=== PATIENT | female | born 1995 | race Caucasian/White ===

== ENCOUNTER 2023-09-23 01:03 | Emergency (ER) | payer MEDICAID ==
[~2023-09-23] VITALS: Ht 160 cm; Wt 70.9 kg
[2023-09-23 01:14] VITALS: BP 115/84; PULSE 82; RESP 16; TEMP 98.6; O2SAT 98
== END 2023-09-23 03:31 | disposition left against medical advice (07) ==
LOC: EDBD 01:05 → EEVIPCON 01:05 → ER 01:05
DX: Z11.3 Encounter for screening for infections with a predominantly sexual mode of transmission (principal); Z88.0 Allergy status to penicillin; Z88.8 Allergy status to other drugs, medicaments and biological substances
CPT/HCPCS: 93005; 99283

== ENCOUNTER 2025-03-17 06:52 | Emergency (ER) | payer MEDICAID ==
[~2025-03-17] VITALS: Ht 160 cm; Wt 72.0 kg
[~2025-03-17 06:52] MED LIST: DIPH25CA52 PO; NO HOME MEDS
[2025-03-17 06:53] VITALS: BP 115/68; PULSE 81; RESP 18; TEMP 98.5; O2SAT 99
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
== END 2025-03-17 09:44 | disposition left against medical advice (07) ==
LOC: ER 06:52
DX: R21 Rash and other nonspecific skin eruption (principal); Z53.21 Procedure and treatment not carried out due to patient leaving prior to being seen by health care provider; Z88.0 Allergy status to penicillin; Z91.010 Allergy to peanuts; Z88.1 Allergy status to other antibiotic agents; Z88.6 Allergy status to analgesic agent; Z79.899 Other long term (current) drug therapy
CPT/HCPCS: 99281

== ENCOUNTER 2025-03-27 13:44 | Emergency (ER) | payer MEDICAID ==
[~2025-03-27] VITALS: Ht 160 cm; Wt 70.4 kg
[2025-03-27 13:54] VITALS: BP 123/89; PULSE 67; TEMP 98.4; O2SAT 99
[2025-03-27 14:19] LABS: LEUKOCYTE ESTERASE ,URINE TRACE (Neg); NITRITES, URINE NEGATIVE (Neg); OCCULT BLOOD,URINE NEGATIVE (Neg)
[2025-03-27 14:23] LABS: URINE HCG NEGATIVE (NEG)
[2025-03-27 14:24] LABS: UA COLLECTION TYPE NON-SPECIFIED
[2025-03-27 14:27] LABS: MEAN PLATELET VOLUME 7.6 FL (7.4-10.4); RED CELL DISTRIBUTION WIDTH 12.8 % (11.5-14.5)
[2025-03-27 14:32] LABS: MUCUS STRANDS FEW /LPF (Neg); SQUAMOUS EPITHELIAL CELL,UR MANY /LPF (FEW)
[2025-03-27 14:42] LABS: CREATININE 0.63 MG/DL (0.40-0.90); TOTAL CARBON DIOXIDE 28.5 MMOL/L (24-32); eCRCL 107 ML/MIN; eGFR > 90 ML/MIN
[2025-03-27 14:46] VITALS: RESP 16
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
== END 2025-03-27 16:03 | disposition home or self-care (01) ==
LOC: EEVIPCON 13:45 → ER 13:45
DX: Z00.00 Encounter for general adult medical examination without abnormal findings (principal); Z88.0 Allergy status to penicillin; Z88.1 Allergy status to other antibiotic agents; Z88.6 Allergy status to analgesic agent; Z88.8 Allergy status to other drugs, medicaments and biological substances; Z91.010 Allergy to peanuts
CPT/HCPCS: 36415; 80053; 81001; 81025; 83690; 85025; 99283

== ENCOUNTER 2025-04-03 09:39 | Emergency (ER) | payer MEDICAID ==
[~2025-04-03] VITALS: Ht 160 cm; Wt 59.1 kg
[2025-04-03 09:46] VITALS: BP 152/80; PULSE 81; RESP 16; TEMP 98; O2SAT 97
[2025-04-03] MEDS: LEVONORGESTREL 1.5MG tablet 1.5 MG TABLET PO ONE (11:40)
[2025-04-03 11:51] LABS: URINE HCG NEGATIVE (NEG)
[2025-04-03] MEDS: TINIDAZOLE 500 MG TABLET PO ONE (13:00)
[2025-04-03] MEDS: CefTRIAXone 500MG IM Kit w/LIDOcaine (for pt below or = to 150kg) IM ONE (13:01)
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
== END 2025-04-03 14:00 | disposition home or self-care (01) ==
LOC: ER 09:39 → EEVIPCON 09:39 → ER 14:00
DX: Z00.00 Encounter for general adult medical examination without abnormal findings (principal); T74.21XA Adult sexual abuse, confirmed, initial encounter; Z88.0 Allergy status to penicillin; Z88.1 Allergy status to other antibiotic agents; Z91.010 Allergy to peanuts; Z88.6 Allergy status to analgesic agent; Z88.8 Allergy status to other drugs, medicaments and biological substances; Z79.899 Other long term (current) drug therapy
CPT/HCPCS: 81025; 96372; 99283; J0696